=== PATIENT | male | born 1970 | race Two or more races ===

== ENCOUNTER 2020-09-03 16:15 | Emergency (ER) | payer SELFPAY ==
[~2020-09-03] VITALS: Ht 167.6 cm; Wt 81.6 kg
--- NOTE | 2020-09-03 16:45 | NUR ---
PT BIB WITH HIS , C/O AMS. PT IS NOW AOX3. NO DISTRESS NOTED, REFUSING VS TO BE TAKEN,
--- NOTE | 2020-09-03 16:50 | NUR ---
PT REFUSING CT SCAN, REFUSING BLOOD DRAW, REFUSING VS TO BE CHECKED. WANTS TO LEAVE. PT IS AOX3, ABLE TO ANSWER QUESTIONS APPROPRIATELY, HE KNOWS TODAYS DATE, KNOWS WHERE HE IS AND IS ORIENTED TO SITUATION
[2020-09-03 16:53] VITALS: BP 208/116
--- NOTE | 2020-09-03 17:18 | NUR ---
PT FINALLY AGREED TO DO CT. OUT FOR CT SCAN
[2020-09-03 17:54] LABS: HEMOGLOBIN 10.6 g/dL (13.5-17.5); PLATELET COUNT (AUTO) 194 /CMM (150-450)
[2020-09-03 18:05] LABS: BASOPHILS # (AUTO) 0.1 /CMM (0.0-0.2); BASOPHILS % (AUTO) 0.9 % (0.0-2.0); EOSINOPHILS % (AUTO) 3.5 % (0.0-6.0); HEMATOCRIT 33 % (39-51); LYMPHOCYTES # (AUTO) 0.8 /CMM (0.8-4.8); LYMPHOCYTES % (AUTO) 6.6 % (20.0-44.0); MEAN CORPUSCULAR HGB CONC 32 g/dl (31.0-36.0); MEAN CORPUSCULAR VOLUME 95 fL (80-96); MONOCYTES # (AUTO) 0.5 /CMM (0.1-1.30); MONOCYTES % (AUTO) 4.3 % (2.0-12.0); NEUTROPHILS # (AUTO) 10.6 /CMM (1.8-8.9); NEUTROPHILS % (AUTO) 84.7 % (43.0-81.0); RED BLOOD CELL COUNT(AUTO) 3.42 MIL/uL (4.5-6.0); WHITE BLOOD COUNT (AUTO) 12.5 K/uL (4.3-11.0)
[2020-09-03 18:41] LABS: ALBUMIN 3.4 g/dL (3.4-5.0); BILIRUBIN,DIRECT 0.8 mg/dL (0.0-0.2); BILIRUBIN,TOTAL 1.2 mg/dL (0.2-1.0); CALCIUM, SERUM 9.3 mg/dL (8.5-10.1); TOTAL PROTEIN, SERUM 8.4 g/dL (6.4-8.2)
[2020-09-03] MEDS: ONDANSETRON HCL/PF - ER 4 MG/2 ML VIAL IV ONE ×2 (19:05→19:08)
[2020-09-03] MEDS ORDERED: ONDANSETRON HCL/PF 4 MG/2 ML VIAL ONE (19:06)
--- NOTE | 2020-09-03 19:07 | NUR ---
PT REFUSED ZOFRAN PT STATES THAT HE FEELS NAUSEATED BUT HE DOESNT WANT ANY MEDS
--- NOTE | 2020-09-03 19:12 | NUR ---
PT UNABLE TO PROVIDE URINE AT THE MOMENT. PT IS A DIALYSIS PT AND STATETS THAT HE SELDOPM PRODUCES URINE
--- NOTE | 2020-09-03 19:38 | NUR ---
Patient does not wish to proceed with medical care recommended by Dr. Way. Patient given information related to possible complications, up to and including , which could occur as a result of leaving the hospital at this time. Patient verbalizes understanding of risks involved due to leaving against medical advice. Patient has signed AMA form.
--- NOTE | 2020-09-03 19:38 | NUR ---
IV removed. Catheter intact and site benign. Pressure and 4x4 applied to site. No bleeding noted.
--- NOTE | 2020-09-03 19:38 | NUR ---
Patient discharged to home in stable condition. Written and verbal after care instructions given. Patient verbalizes understanding of instruction.
== END 2020-09-03 19:38 | disposition left against medical advice (07) ==
LOC: ER 16:27
DX: R55 Syncope and collapse (principal); E87.5 Hyperkalemia; R77.8 Other specified abnormalities of plasma proteins; E11.22 Type 2 diabetes mellitus with diabetic chronic kidney disease; I12.0 Hypertensive chronic kidney disease with stage 5 chronic kidney disease or end stage renal disease; N18.6 End stage renal disease; R41.82 Altered mental status, unspecified; Z99.2 Dependence on renal dialysis
CPT/HCPCS: 36415; 70450; 71045; 80048; 80076; 80320; 83605; 84484; 85025; 85730; 87040 ×2; 93005; 99285; J2405; G0480